=== PATIENT | female | born 1945 | race African-American/Black ===

== ENCOUNTER 2022-02-25 10:43 | Inpatient (IN) | payer MEDICARE, MEDICAID ==
[2022-02-25] MEDS ORDERED: Dextrose 50% Abboject 50 ML SYRINGE SLOW IVP PRN (11:16)
[2022-02-25] MEDS ORDERED: Dextrose 5% in Water 1,000 ML IV PRN (11:16)
[2022-02-25] MEDS ORDERED: HumaLOG 300 UNITS/3 ML VIAL SC PRN ×2 (11:16)
[2022-02-25] MEDS ORDERED: Nitroglycerin 0.4 MG TAB (25 Tab Bottle) SL PRN (11:17)
[2022-02-25] MEDS ORDERED: Ondansetron ODT 4 MG TAB PO PRN (11:22)
[2022-02-25] MEDS ORDERED: Ondansetron PF 4 MG/2 ML Vial IVP PRN (11:22)
[2022-02-25] MEDS ORDERED: Heparin 25,000 units/D5W 500 ML IVPB SCH ×2 (11:45→12:15)
[2022-02-25] MEDS ORDERED: Heparin 10,000 UNITS/ 10 ML VIAL SLOW IVP SCH ×2 (11:45→12:15)
[2022-02-25] MEDS ORDERED: Clopidogrel Bisulfate 300 MG TAB PO SCH (12:15)
[2022-02-25 13:13] LABS: Hemoglobin 8.4 g/dL (12.0-15.5); Platelet Count 248 10x3/uL (150-450)
[2022-02-25 13:47] LABS: Troponin I 7.677 ng/mL (< 0.028)
[2022-02-25] MEDS ORDERED: Heparin 5,000 UNITS/ML VIAL SC SCH (15:00)
[2022-02-25] MEDS ORDERED: Furosemide 40 MG/4 ML VIAL SLOW IVP ONE (16:30)
[2022-02-25] MEDS: Carvedilol 6.25 MG TAB PO SCH (17:39)
[2022-02-25 18:04] LABS: SARS-CoV-2 NAA Rapid Test Not Detected (NotDetected)
[2022-02-25] MEDS: Sevelamer Carbonate 800 MG TAB PO SCH (22:46)
[2022-02-25] MEDS: cloNIDine 0.1 MG TAB PO SCH (22:47)
[2022-02-25] MEDS: Melatonin 3 MG TAB PO PRN (22:47)
[2022-02-25] MEDS: Atorvastatin Calcium 40 MG TAB PO SCH (22:47)
[2022-02-25] MEDS: Nitroglycerin 2% Ointment 1 INCH/1 GM Packet TOP SCH (22:48)
[2022-02-26 04:50] LABS: Hemoglobin 8.1 g/dL (12.0-15.5); Mean Corpuscular HGB CONC 32.4 g/dL (32.0-36.0); Mean Corpuscular Hemoglobin 35.2 pg (27.0-33.0); Mean Corpuscular Volume 108.7 fl (81.6-98.3); Mean Platelet Volume 10.6 fl (7.4-10.4); RBC Distribution Width 19.1 % (11.5-14.5); White Blood Cell (WBC) Count 7.3 10x3/uL (3.5-10.5)
[2022-02-26 04:58] LABS: Anion Gap 22 mmol/L (10-20); BUN (Urea Nitrogen) 44 mg/dL (9.8-20.1); Calc. Creatinine Clearance 9 mL/min (70-130); Calcium 9.1 mg/dL (7.8-10.44); Carbon Dioxide 22 mmol/L (23-31); Chloride 98 mmol/L (98-107); Cholesterol 100 mg/dl (< 200 Desired); Glucose 116 mg/dL (83-110); HDL Cholesterol 33 mg/dL (>60 Neg Risk); LDL Cholesterol, Calculated 49 mg/dL; Potassium 4.7 mmol/L (3.5-5.1); Sodium 137 mmol/L (136-145); Triglycerides 88 mg/dL (Less than 150)
[2022-02-26 05:07] LABS: MDiff Complete? YES; Platelet Count 218 10x3/uL (150-450)
[2022-02-26 05:10] LABS: Band 3 % (5-11); Eosinophils 2 % (0-10); Lymphocytes 12 % (21-51); Monocytes 12 % (0-10); Neutrophil 70 % (42-75)
[2022-02-26 05:11] LABS: Burr Cells SLIGHT = 2-5 cells (100X) (0-1/hpf); Macrocytosis SLIGHT = 6-15 cells (100X) (0-5/hpf); Platelet Morphology Comment Appears Adequate
[2022-02-26] MEDS ORDERED: EPOETIN ALFA-EPBX (ESRD) 10,000 UNIT/ML VIAL SC SCH (07:00)
[2022-02-26] MEDS: cloNIDine 0.1 MG TAB PO SCH ×2 (07:12→14:13)
[2022-02-26] MEDS: Levothyroxine Sodium 50 MCG TAB PO SCH (07:12)
[2022-02-26] MEDS ORDERED: Communication Order-Pharmacy FS SCH (08:30)
[2022-02-26] MEDS ORDERED: Atorvastatin Calcium 20 MG TAB PO SCH (09:00)
[2022-02-26] MEDS ORDERED: Iopamidol 300 61% 100 ML VIAL FS ONE (09:57)
[2022-02-26] MEDS: Carvedilol 6.25 MG TAB PO SCH ×2 (10:51→21:53)
[2022-02-26] MEDS: Amlodipine 10 MG TAB PO SCH (10:51)
[2022-02-26] MEDS: Aspirin Chewable 81 MG TAB PO SCH (10:51)
[2022-02-26] MEDS: Sevelamer Carbonate 800 MG TAB PO SCH ×3 (10:51→22:44)
[2022-02-26] MEDS: Nitroglycerin 2% Ointment 1 INCH/1 GM Packet TOP SCH ×2 (10:51→22:44)
[2022-02-26] MEDS: Cholecalciferol 1,000 UNITS (25 MCG) TAB PO SCH (10:51)
[2022-02-26] MEDS: Clopidogrel Bisulfate 75 MG TAB PO SCH (10:51)
[2022-02-26 12:26] LABS: Hemoglobin A1c 4.8 % (4.0-6.0)
[2022-02-26] MEDS ORDERED: Nitroglycerin 50 MG/250 ML BOT 0 ML ONE (13:52)
[2022-02-26] MEDS ORDERED: Heparin 10,000 UNITS/ 10 ML VIAL ONE (13:52)
[2022-02-26] MEDS ORDERED: Adenosine 6 MG/2 ML VIAL ONE (13:53)
[2022-02-26] MEDS ORDERED: Bivalirudin 250 MG VIAL ONE (13:53)
[2022-02-26] MEDS ORDERED: Verapamil 5 MG/2 ML VIAL ONE (13:53)
[2022-02-26] MEDS ORDERED: Midazolam HCl 2 mg/2 ml Vial ONE (13:54)
[2022-02-26] MEDS ORDERED: Sodium Chloride 0.9% 1,000 ML ONE (13:54)
[2022-02-26] MEDS ORDERED: Fentanyl 100 MCG/2 ML VIAL ONE (13:54)
[2022-02-26] MEDS ORDERED: Lidocaine 1% 20 ML MDV ONE (14:00)
[2022-02-26] MEDS ORDERED: Heparin 10,000 UNITS/ 10 ML VIAL SLOW IVP PRN (14:39)
[2022-02-26] MEDS ORDERED: Nitroglycerin 0.4 MG TAB (25 Tab Bottle) SL PRN (14:47)
[2022-02-26] MEDS ORDERED: Sodium Chloride 0.9% 200 ML IV PRN (14:47)
[2022-02-26] MEDS ORDERED: Ondansetron PF 4 MG/2 ML Vial ONE (14:53)
[2022-02-26] MEDS ORDERED: Atropine Sulfate 1 mg/10 ml Syringe ONE (20:57)
[2022-02-26] MEDS ORDERED: Fentanyl 100 MCG/2 ML VIAL SLOW IVP SCH (22:00)
[2022-02-26] MEDS: Atorvastatin Calcium 40 MG TAB PO SCH (22:44)
[2022-02-26] MEDS: Acetaminophen 325 MG TAB PO PRN (23:22)
[2022-02-27 05:09] LABS: #Basophils 0.1 10x3/uL (0.0-0.2); #Eosinphils 0.1 10x3/uL (0.0-0.5); #Monocytes 0.9 10x3/uL (0.0-1.1); #Neutrophils 5.9 10x3/uL (1.5-8.4); %Basophils 0.7 % (0.0-2.0); %Eosinophils 1.6 % (0.0-6.0); %Lymphocytes 8.8 % (18.0-47.0); %Monocytes 11.7 % (0.0-10.0); %Neutrophils 76.8 % (40.0-75.0); Hemoglobin 8.1 g/dL (12.0-15.5); Mean Corpuscular HGB CONC 32.5 g/dL (32.0-36.0); Mean Corpuscular Hemoglobin 35.1 pg (27.0-33.0); Mean Corpuscular Volume 107.8 fl (81.6-98.3); Mean Platelet Volume 10.3 fl (7.4-10.4); Platelet Count 224 10x3/uL (150-450); RBC Distribution Width 18.9 % (11.5-14.5); Red Blood Cell (RBC) Count 2.31 10x6/uL (3.90-5.03); White Blood Cell (WBC) Count 7.6 10x3/uL (3.5-10.5)
[2022-02-27 05:12] LABS: Anion Gap 18 mmol/L (10-20); BUN (Urea Nitrogen) 20 mg/dL (9.8-20.1); Calc. Creatinine Clearance 15 mL/min (70-130); Carbon Dioxide 26 mmol/L (23-31); Chloride 96 mmol/L (98-107); Glucose 95 mg/dL (83-110); Potassium 3.9 mmol/L (3.5-5.1); Sodium 136 mmol/L (136-145)
[2022-02-27] MEDS: cloNIDine 0.1 MG TAB PO SCH ×2 (05:37→05:38)
[2022-02-27] MEDS: Levothyroxine Sodium 50 MCG TAB PO SCH (05:38)
[2022-02-27] MEDS: Nitroglycerin 2% Ointment 1 INCH/1 GM Packet TOP SCH ×2 (08:34→20:08)
[2022-02-27] MEDS: Clopidogrel Bisulfate 75 MG TAB PO SCH (08:35)
[2022-02-27] MEDS: Cholecalciferol 1,000 UNITS (25 MCG) TAB PO SCH (08:35)
[2022-02-27] MEDS: Carvedilol 6.25 MG TAB PO SCH ×2 (08:35→17:05)
[2022-02-27] MEDS: Sevelamer Carbonate 800 MG TAB PO SCH ×3 (08:35→20:08)
[2022-02-27] MEDS: Amlodipine 10 MG TAB PO SCH (08:35)
[2022-02-27] MEDS: Aspirin Chewable 81 MG TAB PO SCH (08:36)
[2022-02-27 12:23] LABS: Hemoglobin 7.6 g/dL (12.0-15.5); Platelet Count 219 10x3/uL (150-450)
[2022-02-27] MEDS: Atorvastatin Calcium 40 MG TAB PO SCH (20:08)
[2022-02-27] MEDS: Melatonin 3 MG TAB PO PRN (23:22)
[2022-02-27] MEDS: Acetaminophen 325 MG TAB PO PRN (23:54)
[2022-02-28 04:14] LABS: #Eosinphils 0.3 10x3/uL (0.0-0.5); #Neutrophils 4.8 10x3/uL (1.5-8.4); %Basophils 0.4 % (0.0-2.0); %Eosinophils 3.7 % (0.0-6.0); %Lymphocytes 13.2 % (18.0-47.0); %Monocytes 14.5 % (0.0-10.0); %Neutrophils 67.8 % (40.0-75.0); Hemoglobin 7.9 g/dL (12.0-15.5); Mean Corpuscular HGB CONC 33.2 g/dL (32.0-36.0); Mean Corpuscular Hemoglobin 35.6 pg (27.0-33.0); Mean Corpuscular Volume 107.2 fl (81.6-98.3); Platelet Count 227 10x3/uL (150-450); RBC Distribution Width 19.4 % (11.5-14.5); Red Blood Cell (RBC) Count 2.22 10x6/uL (3.90-5.03); White Blood Cell (WBC) Count 7.1 10x3/uL (3.5-10.5)
[2022-02-28 04:29] LABS: Anion Gap 17 mmol/L (10-20); BUN (Urea Nitrogen) 28 mg/dL (9.8-20.1); Calc. Creatinine Clearance 11 mL/min (70-130); Calcium 8.9 mg/dL (7.8-10.44); Carbon Dioxide 27 mmol/L (23-31); Chloride 94 mmol/L (98-107); Glucose 93 mg/dL (83-110); Sodium 134 mmol/L (136-145)
[2022-02-28] MEDS: Levothyroxine Sodium 50 MCG TAB PO SCH (06:39)
[2022-02-28] MEDS: Sevelamer Carbonate 800 MG TAB PO SCH ×3 (13:44→20:59)
[2022-02-28] MEDS: Aspirin Chewable 81 MG TAB PO SCH (13:44)
[2022-02-28] MEDS: Cholecalciferol 1,000 UNITS (25 MCG) TAB PO SCH (13:45)
[2022-02-28] MEDS: Amlodipine 10 MG TAB PO SCH (13:45)
[2022-02-28] MEDS: Clopidogrel Bisulfate 75 MG TAB PO SCH (13:45)
[2022-02-28] MEDS: Carvedilol 6.25 MG TAB PO SCH ×2 (17:26→17:27)
[2022-02-28] MEDS: Nitroglycerin 2% Ointment 1 INCH/1 GM Packet TOP SCH ×2 (17:28→20:59)
[2022-02-28] MEDS ORDERED: Lidocaine 5% Patch TD SCH (18:00)
[2022-02-28] MEDS: Atorvastatin Calcium 40 MG TAB PO SCH (20:59)
[2022-02-28] MEDS: Melatonin 3 MG TAB PO PRN (23:10)
[2022-03-01] MEDS ORDERED: Transdermal Patch Removal TOP SCH (06:00)
[2022-03-01] MEDS: Levothyroxine Sodium 50 MCG TAB PO SCH (06:28)
[2022-03-01 07:04] VITALS: BMI 30.2
[2022-03-01] MEDS ORDERED: Lidocaine 5% Patch TD SCH (09:00)
[2022-03-01] MEDS: Sevelamer Carbonate 800 MG TAB PO SCH (09:39)
[2022-03-01] MEDS: Nitroglycerin 2% Ointment 1 INCH/1 GM Packet TOP SCH (09:40)
[2022-03-01] MEDS: Amlodipine 10 MG TAB PO SCH (09:40)
[2022-03-01] MEDS: Cholecalciferol 1,000 UNITS (25 MCG) TAB PO SCH (09:40)
[2022-03-01] MEDS: Carvedilol 6.25 MG TAB PO SCH (09:40)
[2022-03-01] MEDS: Aspirin Chewable 81 MG TAB PO SCH (09:41)
[2022-03-01] MEDS: Clopidogrel Bisulfate 75 MG TAB PO SCH (09:45)
[2022-03-01 12:23] LABS: Hemoglobin 8.1 g/dL (12.0-15.5); Platelet Count 259 10x3/uL (150-450)
[2022-03-01 14:27] LABS: Hemoglobin 8.3 g/dL (12.0-15.5); Platelet Count 254 10x3/uL (150-450)
[2022-03-01 15:44] VITALS: BP 130/59; TEMP 99.3
== END 2022-03-01 16:45 | disposition home or self-care (01) | DRG 246 ==
LOC: CSHTELE 10:43 → CSHIMCU 02-26 15:49 → CSHTELE 02-28 07:19
PROVIDERS: ADMIT Hospitalist; ATTEND Hospitalist
PROC: 4A023N7 Measurement of Cardiac Sampling and Pressure, Left Heart, Percutaneous Approach (ICD-10-PCS; principal; 2022-02-26)
PROC: 027034Z Dilation of Coronary Artery, One Artery with Drug-eluting Intraluminal Device, Percutaneous Approach (ICD-10-PCS; 2022-02-26)
PROC: B2111ZZ Fluoroscopy of Multiple Coronary Arteries using Low Osmolar Contrast (ICD-10-PCS; 2022-02-26)
PROC: B2151ZZ Fluoroscopy of Left Heart using Low Osmolar Contrast (ICD-10-PCS; 2022-02-26)
PROC: B240ZZ3 Ultrasonography of Single Coronary Artery, Intravascular (ICD-10-PCS; 2022-02-26)
PROC: 5A1D70Z Performance of Urinary Filtration, Intermittent, Less than 6 Hours Per Day (ICD-10-PCS; 2022-02-26)
DX: I21.4 Non-ST elevation (NSTEMI) myocardial infarction (principal); N18.6 End stage renal disease; I50.43 Acute on chronic combined systolic (congestive) and diastolic (congestive) heart failure; J96.10 Chronic respiratory failure, unspecified whether with hypoxia or hypercapnia; I13.2 Hypertensive heart and chronic kidney disease with heart failure and with stage 5 chronic kidney disease, or end stage renal disease; I42.9 Cardiomyopathy, unspecified; E11.51 Type 2 diabetes mellitus with diabetic peripheral angiopathy without gangrene; I25.10 Atherosclerotic heart disease of native coronary artery without angina pectoris; J45.909 Unspecified asthma, uncomplicated; E03.9 Hypothyroidism, unspecified; D50.9 Iron deficiency anemia, unspecified; D63.1 Anemia in chronic kidney disease; E11.22 Type 2 diabetes mellitus with diabetic chronic kidney disease; Z20.822 Contact with and (suspected) exposure to COVID-19; Z99.2 Dependence on renal dialysis; Z95.5 Presence of coronary angioplasty implant and graft; Z79.890 Hormone replacement therapy; Z79.01 Long term (current) use of anticoagulants; Z79.899 Other long term (current) drug therapy; Z98.890 Other specified postprocedural states; Z99.81 Dependence on supplemental oxygen; Z90.49 Acquired absence of other specified parts of digestive tract; Z98.42 Cataract extraction status, left eye; Z98.41 Cataract extraction status, right eye; Z82.49 Family history of ischemic heart disease and other diseases of the circulatory system; Z88.5 Allergy status to narcotic agent; Z88.8 Allergy status to other drugs, medicaments and biological substances; Z87.891 Personal history of nicotine dependence; Z85.3 Personal history of malignant neoplasm of breast; Z79.82 Long term (current) use of aspirin; Z79.4 Long term (current) use of insulin; E78.5 Hyperlipidemia, unspecified
CPT/HCPCS: 36415; 36416; 80048; 80061; 82607; 82746; 83036; 83880; 84443; 85014; 85018; 85025; 85049; 85347; 85730; 90935; 92928; 92978; 93005; 93010; 93306; 93458; 94760; 97139; 99152; 99153; C1725; C1753; C1769; C1874; C1887; C1894; C9600; G0257; J0153; J0583; J1644; J2250; J2405; J3010; J7050; Q5105; Q9967; U0002

== ENCOUNTER 2022-03-26 09:33 | Observation (INO) | payer MEDICARE, MEDICAID ==
[2022-03-26] MEDS ORDERED: HumaLOG 300 UNITS/3 ML VIAL SC PRN ×2 (10:54)
[2022-03-26] MEDS ORDERED: Dextrose 50% Abboject 50 ML SYRINGE SLOW IVP PRN (10:54)
[2022-03-26] MEDS ORDERED: Dextrose 5% in Water 1,000 ML IV PRN (10:54)
[2022-03-26] MEDS ORDERED: Senokot S 8.6-50 MG TAB PO PRN (10:59)
[2022-03-26] MEDS ORDERED: Ondansetron PF 4 MG/2 ML Vial IVP PRN (10:59)
[2022-03-26] MEDS ORDERED: Acetaminophen 325 MG TAB PO PRN (10:59)
[2022-03-26] MEDS ORDERED: Ondansetron ODT 4 MG TAB PO PRN (10:59)
[2022-03-26 12:24] LABS: Troponin I 0.121 ng/mL (< 0.028)
[2022-03-26] MEDS ORDERED: EPOETIN ALFA-EPBX (ESRD) 10,000 UNIT/ML VIAL SC SCH (12:30)
[2022-03-26] MEDS ORDERED: Albuterol Sulfate 2.5 mg/3 ml Neb NEB PRN (12:31)
[2022-03-26] MEDS ORDERED: Melatonin 3 MG TAB PO PRN (12:43)
[2022-03-26] MEDS ORDERED: Heparin 10,000 UNITS/ 10 ML VIAL SLOW IVP PRN (13:05)
[2022-03-26 14:27] LABS: Troponin I 0.147 ng/mL (< 0.028)
[2022-03-26] MEDS ORDERED: SEVELAMER CARBONATE PO SCH (15:00)
[2022-03-26] MEDS: Sevelamer 2.4 GM PACKET PO SCH (17:21)
[2022-03-26] MEDS: Carvedilol 6.25 MG TAB PO SCH (17:21)
[2022-03-26] MEDS ORDERED: Atorvastatin Calcium 40 MG TAB PO SCH (21:00)
[2022-03-27 04:34] LABS: #Basophils 0.1 10x3/uL (0.0-0.2); #Eosinphils 0.4 10x3/uL (0.0-0.5); #Monocytes 0.9 10x3/uL (0.0-1.1); #Neutrophils 4.4 10x3/uL (1.5-8.4); %Basophils 0.7 % (0.0-2.0); %Eosinophils 5.5 % (0.0-6.0); %Lymphocytes 15.7 % (18.0-47.0); %Monocytes 13.4 % (0.0-10.0); %Neutrophils 64.4 % (40.0-75.0); Hemoglobin 7.2 g/dL (12.0-15.5); Mean Corpuscular HGB CONC 32.3 g/dL (32.0-36.0); Mean Corpuscular Volume 111.5 fl (81.6-98.3); Mean Platelet Volume 9.8 fl (7.4-10.4); Platelet Count 242 10x3/uL (150-450); RBC Distribution Width 17.3 % (11.5-14.5); White Blood Cell (WBC) Count 6.9 10x3/uL (3.5-10.5)
[2022-03-27 04:50] LABS: Anion Gap 17 mmol/L (10-20); BUN (Urea Nitrogen) 27 mg/dL (9.8-20.1); Basophilic Stippling SLIGHT = 1-2 cells (100X) (None Seen); Calc. Creatinine Clearance 11 mL/min (70-130); Calcium 8.9 mg/dL (7.8-10.44); Carbon Dioxide 29 mmol/L (23-31); Chloride 97 mmol/L (98-107); Estimated GFR 7; Glucose 94 mg/dL (83-110); Macrocytosis SLIGHT = 6-15 cells (100X) (0-5/hpf); Platelet Morphology Comment Appears Adequate; Potassium 4.2 mmol/L (3.5-5.1); Sodium 139 mmol/L (136-145)
[2022-03-27 05:00] VITALS: BMI 29.7
[2022-03-27] MEDS ORDERED: Levothyroxine Sodium 50 MCG TAB PO SCH (06:00)
[2022-03-27] MEDS ORDERED: Aspirin Chewable 81 MG TAB PO SCH (09:00)
[2022-03-27] MEDS ORDERED: Clopidogrel Bisulfate 75 MG TAB PO SCH (09:00)
[2022-03-27] MEDS ORDERED: Cholecalciferol 1,000 UNITS (25 MCG) TAB PO SCH (09:00)
[2022-03-27] MEDS ORDERED: Folic Acid 1 MG TAB PO SCH (09:00)
[2022-03-27] MEDS: Carvedilol 6.25 MG TAB PO SCH (12:03)
[2022-03-27] MEDS: Sevelamer 2.4 GM PACKET PO SCH ×2 (12:11→12:12)
[2022-03-27 15:52] VITALS: BP 122/58; TEMP 97.3
[2022-03-27] MEDS ORDERED: Sevelamer Carbonate 800 MG TAB PO SCH (17:00)
== END 2022-03-27 17:30 | disposition home or self-care (01) ==
LOC: CSHTELE 09:33 → INTOOBSV 09:33
PROVIDERS: ADMIT Internal Medicine; ATTEND Internal Medicine
DX: I13.2 Hypertensive heart and chronic kidney disease with heart failure and with stage 5 chronic kidney disease, or end stage renal disease (principal); E11.22 Type 2 diabetes mellitus with diabetic chronic kidney disease; N18.6 End stage renal disease; I50.43 Acute on chronic combined systolic (congestive) and diastolic (congestive) heart failure; D63.1 Anemia in chronic kidney disease; J96.21 Acute and chronic respiratory failure with hypoxia; R77.8 Other specified abnormalities of plasma proteins; E11.65 Type 2 diabetes mellitus with hyperglycemia; E78.5 Hyperlipidemia, unspecified; E03.9 Hypothyroidism, unspecified; J45.909 Unspecified asthma, uncomplicated; I25.10 Atherosclerotic heart disease of native coronary artery without angina pectoris; E83.39 Other disorders of phosphorus metabolism; M10.9 Gout, unspecified; M19.90 Unspecified osteoarthritis, unspecified site; E66.01 Morbid (severe) obesity due to excess calories; Z68.29 Body mass index [BMI] 29.0-29.9, adult; Z85.3 Personal history of malignant neoplasm of breast; Z87.891 Personal history of nicotine dependence; Z79.02 Long term (current) use of antithrombotics/antiplatelets; Z79.82 Long term (current) use of aspirin; Z79.890 Hormone replacement therapy; Z79.899 Other long term (current) drug therapy; Z88.5 Allergy status to narcotic agent; Z88.8 Allergy status to other drugs, medicaments and biological substances; Z95.5 Presence of coronary angioplasty implant and graft; Z99.2 Dependence on renal dialysis
CPT/HCPCS: 71045; 80048; 80053; 82553; 82962 ×2; 83880; 84484 ×2; 85025 ×2; 86850; 86900; 86901; 86920; 86922; 93005; 94640; 94760 ×2; 97116; Q5105; U0002; 36415; 36416; 90935; G0257; G0378; J1644; J2405; J7620